=== PATIENT | male | born 1960 | race Caucasian/White ===

== ENCOUNTER → 2020-10-12 13:21 | Outpatient (BNVA) | payer SELFPAY | PROVIDERS: Family Provider Family Medicine; Referring Provider Nurse Practitioner Family; Visit Provider Nurse Practitioner Family | DX: R06.02 Shortness of breath (principal) | CPT/HCPCS: 71046 ==

== ENCOUNTER → 2023-11-16 09:12 | Outpatient (BNVA) | payer OTHER, SELFPAY | PROVIDERS: Family Provider Family Medicine; PCP Nurse Practitioner Family; Visit Provider Emergency Medicine | DX: R30.0 Dysuria (principal); R35.0 Frequency of micturition | CPT/HCPCS: 81000; 87086 ==